=== PATIENT | female | born 2000 | race Caucasian/White ===

== ENCOUNTER 2022-03-03 10:32 | Outpatient (CLI) | payer OTHER, SELFPAY ==
[2022-03-03 11:00] LABS: Basophils Absolute Auto 0.1 K/mm3 (0.0-0.1); Basophils Percent Auto 0.4 % (0.2-1.2); Eosinophils Absolute Auto 0.1 K/mm3 (0-0.3); Eosinophils Percent Auto 0.9 % (0-4.4); Hematocrit 41.2 % (37.0-47.0); Hemoglobin 13.3 g/dL (12.0-15.0); Immature Granulocyte Absolute 0.06 K/mm3 (0.00-0.031); Immature Granulocyte Percent A 0.5 % (0-0.5); Lymphocytes Percent Auto 32.9 % (18.3-44.2); Mean Corpuscular HGB Conc 32.3 g/dl (32-36); Mean Corpuscular Hemoglobin 28.1 pg (26-34); Mean Corpuscular Volume 87.1 fl (80-100); Monocytes Absolute Auto 0.9 K/mm3 (0.1-0.6); Monocytes Percent Auto 7.8 % (2.6-8.5); Neutrophils Absolute Auto 6.8 K/mm3 (1.3-6.7); Neutrophils Percent Auto 57.5 % (45.5-73.1); Platelet Count Result 523 k/mm3 (150-375); Red Blood Count 4.73 M/mm3 (4.2-5.4); Red Cell Distribution Width 12.6 % (11.5-14.5); White Blood Count 11.9 K/mm3 (4.5-10.0)
[2022-03-03 11:13] LABS: Cholesterol 148 mg/dL (0-200); HDL Direct 40 mg/dL; Triglycerides 73 mg/dL (<150)
[2022-03-03 11:24] LABS: LDL Cholesterol Direct 86 mg/dL
[2022-03-03 11:30] LABS: Beta HCG Quantitative < 2.39 mIU/ML
[2022-03-07 08:41] LABS: FSH 11.9 mIU/mL (***); Prolactin 9.7 ng/mL (***)
[2022-03-07 11:09] LABS: DHEA-Sulfate 78 mcg/dL (51-321)
[2022-03-07 20:32] LABS: Testosterone Free 3.1 pg/mL (0.1-6.4); Testosterone Total 31 ng/dL (2-45)
[2022-03-16 10:26] LABS: Estradiol, Ultrasensitive 145
== END 2022-03-03 10:33 | disposition home or self-care (01) ==
PROVIDERS: Visit Provider Obstetrics & Gynecology
DX: N92.6 Irregular menstruation, unspecified (principal)
CPT/HCPCS: 36415; 80061; 82627; 82670; 83001; 83036; 83498; 84144; 84146; 84402; 84403; 84702; 85025

== ENCOUNTER 2022-04-14 08:17 | Outpatient (CLI) | payer OTHER, SELFPAY ==
[2022-04-18 05:50] LABS: Progesterone 1.7 ng/mL (***)
== END 2022-04-14 08:18 | disposition home or self-care (01) ==
PROVIDERS: Visit Provider Obstetrics & Gynecology
DX: N92.6 Irregular menstruation, unspecified (principal)
CPT/HCPCS: 36415; 84144

== ENCOUNTER 2022-05-05 08:34 | Emergency (ER) | payer OTHER, SELFPAY ==
[2022-05-05 08:43] VITALS: BP 152/79; PULSE 88; RESP 20; TEMP 36.6; O2SAT 98
--- NOTE | 2022-05-05 09:09 | ED.URI ---
HPI - URI/Sore Throat General Chief Complaint: Upper Respiratory Infection Stated Complaint: Sore Throat/Cough Time Seen by Provider: 05/05/22 09:09 Source: patient and RN notes reviewed Mode of arrival: ambulatory Limitations: no limitations History of Present Illness HPI Narrative: 22-year-old female presents with concern for headache, cough, sinus congestion, body aches, fever that started on Wednesday night. She reports she has taken ibuprofen without relief. MD elicited complaint: cough Related Data Allergies Allergy/AdvReac Type Severity Reaction Status Date / Time No Known Allergies Allergy Verified 05/05/22 08:51 Review of Systems Review of Systems: CONSTITUTIONAL: Reports malaise, fever. EYES: Denies visual changes, redness, or discharge. ENT: Reports rhinorrhea, congestion. Denies sinus pain, otalgia and sore throat. CARDIOVASCULAR: Denies chest pain, palpitations, or edema. RESPIRATORY: Reports cough. Denies dyspnea. GASTROINTESTINAL: Denies abdominal pain, nausea, vomiting, diarrhea SKIN: Denies rash or itching. MUSCULOSKELETAL: Reports myalgia. NEUROLOGIC: Reports headache. 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 There is no relevant family history pertinent to the presenting complaint Exam Narrative: GENERAL: Nontoxic-appearing and in no acute distress. HEAD: Normocephalic EYES: PERRLA, conjunctivae clear ENT: Nares clear, turbinates edematous and erythematous, clear discharge. Mucous membranes moist. TM pearly joyce with dull light reflex bilaterally; no tragal tenderness. Oropharynx not erythematous without lesions. Tonsils not enlarged and without exudate, no drooling, no hoarseness, no trismus, uvula midline. NECK: Supple. No lymphadenopathy CHEST: Clear to auscultation, breath sounds equal. No wheezing, rhonchi, rales, or stridor. No respiratory distress, speaks in full sentences. HEART: Regular rate and rhythm. No murmur heard. SKIN: Warm, dry, no rash. NEURO: Alert and oriented x3. PSYCH: Normal mood and affect Course Course Emergency Course: Patient is aware of diagnosis, understands and agrees to treatment plan. Anticipatory guidance given. Patient agrees to follow-up as directed and is aware of reasons to seek care at the emergency department. Portions of this record may have been created with voice recognition software Level of Care: Express Care Visit Vital Signs Vital signs: Vital Signs Temperature 98 F 05/05/22 08:43 Pulse Rate 88 05/05/22 08:43 Respiratory Rate 20 05/05/22 08:43 Blood Pressure 152/79 H 05/05/22 08:43 Pulse Oximetry 98 05/05/22 08:43 Oxygen Delivery Room Air 05/05/22 08:43 Temperature 98 F 05/05/22 08:43 Pulse Rate 88 05/05/22 08:43 Respiratory Rate 20 05/05/22 08:43 Blood Pressure 152/79 H 05/05/22 08:43 Pulse Oximetry 98 05/05/22 08:43 Oxygen Delivery Room Air 05/05/22 08:43 Reviewed. MDM - URI/Sore Throat MDM Narrative Medical decision making narrative: Differential diagnosis considered: Jewell virus, strep pharyngitis, allergic rhinitis, upper respiratory tract infection, sinusitis, rhinosinusitis, nasopharyngitis. v
== END 2022-05-05 09:20 | disposition home or self-care (01) ==
PROVIDERS: Emergency Provider Nurse Practitioner
DX: J10.1 Influenza due to other identified influenza virus with other respiratory manifestations (principal)
CPT/HCPCS: 87804; 99213; G0463

== ENCOUNTER 2022-07-30 08:36 | Outpatient (CLI) | payer OTHER, SELFPAY ==
[2022-08-02 14:59] LABS: Progesterone 14.8 ng/mL (***)
== END 2022-07-30 08:37 | disposition home or self-care (01) ==
LOC: ANHLAB 08:38
PROVIDERS: Visit Provider Student in an Organized Health Care Education/Training Program
DX: N97.9 Female infertility, unspecified (principal)
CPT/HCPCS: 36415; 84144

== ENCOUNTER 2023-01-25 14:58 | Outpatient (CLI) | payer OTHER, SELFPAY ==
[2023-01-28 05:26] LABS: Progesterone 3.6 ng/mL (***)
== END 2023-01-25 14:59 | disposition home or self-care (01) ==
LOC: ANHLAB 14:59
PROVIDERS: Visit Provider Obstetrics & Gynecology
DX: N92.6 Irregular menstruation, unspecified (principal)
CPT/HCPCS: 36415; 84144

== ENCOUNTER 2023-03-11 16:55 | Outpatient (CLI) | payer OTHER, SELFPAY ==
[2023-03-11 18:16] LABS: Beta HCG Quantitative < 2.39 mIU/ML
== END 2023-03-11 16:56 | disposition home or self-care (01) ==
LOC: ANHLAB 16:58
PROVIDERS: PCP Family Medicine; Visit Provider Obstetrics & Gynecology
DX: N92.6 Irregular menstruation, unspecified (principal)
CPT/HCPCS: 36415; 84702

== ENCOUNTER 2023-04-21 16:29 | Outpatient (CLI) | payer OTHER, SELFPAY ==
[2023-04-26 14:49] LABS: Progesterone 15.9 ng/mL (***)
== END 2023-04-21 16:30 | disposition home or self-care (01) ==
LOC: ANHLAB 16:30
PROVIDERS: PCP Family Medicine; Visit Provider Obstetrics & Gynecology
DX: N92.6 Irregular menstruation, unspecified (principal)
CPT/HCPCS: 36415; 84144

== ENCOUNTER 2024-03-26 01:30 | Emergency (ER) | payer BC, SELFPAY ==
--- NOTE | ~2024-03-26 | XR_ITS ---
Right Knee Technique: AP, lateral, and oblique views were obtained. Clinical History: Status post fall Findings: No fracture or dislocation is seen. Osseous alignment is anatomic. Joint spaces are preserv ed without degenerative or erosive change. Soft tissues are unremarkable. No joint effusion is seen. Impression: Unremarkable right knee radiographs. Reviewed, dictated and finalized at location . Impression: Unremarkable right knee radiographs.
[2024-03-26 01:31] VITALS: BP 140/84; PULSE 91; RESP 16; TEMP 36.5; O2SAT 98
--- NOTE | 2024-03-26 03:53 | ED.GENADULT ---
HPI - General Adult General Chief complaint: Extremity Injury, Lower Stated complaint: I think i broke my right knee Time Seen by Provider: 03/26/24 02:59 History of Present Illness HPI narrative: Patient is a 24-year-old female who presents to the emergency department this evening complaining of a right knee pain status post fall. Patient states that she was walking and did not see a curb and accidentally stepped over it falling forward. Patient did hit her right knee on the ground. Patient admits that she was ambulatory after the incident but states that she noticed some pain wall walking on her right leg. Denies any head injury, denies additional symptoms or concerns at this time. Related Data Home Medications Medication Instructions Recorded Confirmed bupropion HCl 300 mg 24 hr tablet, 300 mg PO 01/27/24 01/27/24 extended release fluoxetine 20 mg capsule 60 mg PO 01/27/24 01/27/24 Allergies Allergy/AdvReac Type Severity Reaction Status Date / Time No Known Allergies Allergy Verified 01/27/24 15:02 Review of Systems Review of Systems: All systems are reviewed and are negative unless stated otherwise in the HPI. [facility] Past Medical History Medical History Anxiety Surgical History Surgical History Hx of tonsillectomy Family History Family History Other Diabetes mellitus Hypertension Social History Social History Smoking status: Never smoker Alcohol intake: current Alcohol use details: socially Substance use: never Substance use type: does not use Lack of Transportation: No Lack of Food: Never True Current Housing: I Have Housing Concerned About Future Housing: No Difficulty Paying Gas/Electric Bills: No Difficulty Paying for Meds: No Currently Unemployed: No Education: Associate Degree Difficulty w/ Childcare or Family Care: No Living arrangements: with family Occupation/Education: occupation Additional occupation/education comments: carpenter general at [employer] Gender identity (if verbalized by the patient): Female Sexual Orientation (if Verbalized by the Patient): Straight or Heterosexual Exam Narrative: General: Alert, awake, afebrile, in no acute distress. HEENT: PERRL, no rhinorrhea, no post nasal drip, oropharynx clear. Cardiovascular: Regular rate and rhythm, no murmurs, rubs or gallops, no peripheral edema. Respiratory: Clear to auscultation bilaterally, no tachypnea, no wheezing, no rhonchi, no rubs, no respiratory distress. Abdomen: Soft, nontender, nondistended, no rebound, no guarding, no peritoneal signs. Musculoskeletal: Minimal swelling noted to the right knee cap, intact bilateral are hip flexion and knee extension, intact full range of motion at the right knee joint. Skin: No rashes or petechia, no signs of infection. Neurological: Alert and oriented to person, place, and time. Follows all commands. No focal deficits, speech is clear and fluent. Course Vital Signs Vital signs: Vital Signs Temperature 97.7 F 03/26/24 01:31 Pulse Rate 91 03/26/24 01:31 Respiratory Rate 16 03/26/24 01:31 Blood Pressure 140/84 03/26/24 01:31 Pulse Oximetry 98 03/26/24 01:31 Oxygen Delivery Room Air 03/26/24 01:31 Temperature 97.7 F 03/26/24 01:31 Pulse Rate 91 03/26/24 01:31 Respiratory Rate 16 03/26/24 01:31 Blood Pressure 140/84 03/26/24 01:31 Pulse Oximetry 98 03/26/24 01:31 Oxygen Delivery Room Air 03/26/24 01:31 Medical Decision Making MDM Narrative Medical decision making narrative: The patient was evaluated by myself in the emergency department. History is obtained from patient who is an independent historian and physical exam was performed. External medical record
[2024-03-26] MEDS: KETOROLAC 15 MG/ML VIAL (*BKC) IM (04:00)
== END 2024-03-26 04:07 | disposition home or self-care (01) ==
PROVIDERS: Emergency Provider Emergency Medicine; PCP Family Medicine
DX: M23.91 Unspecified internal derangement of right knee (principal); S89.91XA Unspecified injury of right lower leg, initial encounter; F41.9 Anxiety disorder, unspecified; Z79.899 Other long term (current) drug therapy; W10.1XXA Fall (on)(from) sidewalk curb, initial encounter
CPT/HCPCS: 73564; 96372; 99283; J1885

== ENCOUNTER 2024-05-23 07:04 | Outpatient (CLI) | payer BC, SELFPAY ==
[2024-05-23 08:15] LABS: Beta HCG Quantitative < 2.39 mIU/ML
== END 2024-05-23 07:05 | disposition home or self-care (01) ==
LOC: ANHLAB 07:05
PROVIDERS: PCP Family Medicine; Visit Provider Obstetrics & Gynecology
DX: N92.6 Irregular menstruation, unspecified (principal)
CPT/HCPCS: 36415; 84702

== ENCOUNTER 2024-11-30 08:26 | Outpatient (CLI) | payer BC, SELFPAY ==
--- NOTE | ~2024-11-30 | XR_ITS ---
EXAMINATION: XR hysterosalpingogram DATE: 11/30/2024 12:20 INDICATION: Irregular menstruation TECHNIQUE: Multiple fluoroscopic images were obtained during contrast infusion into the endometrial c anal of the uterus by the primary physician. Fluoroscopy exposure time was 0.4 minutes. Total DAP was 2.364 mGycm^2. FINDINGS: The uterine cavity demonstrates normal morphology. The fallopian tubes are normal in caliber and pat ent bilaterally. There is normal spillage of contrast into the peritoneum on both sides. IMPRESSION: 1. Normal hysterosalpingogram. Reviewed, dictated and finalized at location A.
[2024-11-30 09:53] LABS: Beta HCG Quantitative < 2.39 mIU/ML
== END 2024-11-30 08:27 | disposition home or self-care (01) ==
PROVIDERS: PCP Family Medicine; Visit Provider Obstetrics & Gynecology
DX: N92.6 Irregular menstruation, unspecified (principal)
CPT/HCPCS: 36415; 58340; 74740; 84702; Q9966